=== PATIENT | female | born 1985 | race Caucasian/White ===

== ENCOUNTER 2020-10-09 16:15 | Emergency (ER) | payer SELFPAY ==
[~2020-10-09] VITALS: Ht 162.6 cm; Wt 129.3 kg
[2020-10-09] MEDS ORDERED: Ativan1 MG SL (17:19)
[2020-10-09] MEDS ORDERED: Vistaril25 MG PO (17:19)
== END 2020-10-09 17:42 | disposition home or self-care (01) ==
LOC: ER 16:15
DX: F41.9 Anxiety disorder, unspecified (principal); F32.9 Major depressive disorder, single episode, unspecified; U07.1 COVID-19; Z79.899 Other long term (current) drug therapy
CPT/HCPCS: 99283; A9270

== ENCOUNTER 2020-10-11 15:46 | Emergency (ER) | payer SELFPAY ==
[~2020-10-11] VITALS: Ht 162.6 cm; Wt 129.3 kg
[~2020-10-11 15:46] MED LIST: Ativan1 MG SL; Vistaril25 MG PO
[2020-10-11] MEDS ORDERED: Zithromax250 MG PO (18:06)
== END 2020-10-11 18:31 | disposition home or self-care (01) ==
LOC: ER 15:46
DX: U07.1 COVID-19 (principal); R09.02 Hypoxemia; Z79.899 Other long term (current) drug therapy
CPT/HCPCS: 71045; 99284-25; J1100